=== PATIENT | female | born 1960 | race Caucasian/White ===

== ENCOUNTER 2017-04-08 11:32 | Emergency (ER) | payer OTHER ==
[~2017-04-08] VITALS: Ht 154.9 cm; Wt 80.0 kg
[~2017-04-08 11:32] MED LIST: ACET500T98 PO; AZIT250T94 PO; IBUP200C PO; OXYM15SP34 NASAL; UDROBDM PO
[2017-04-08 11:35] VITALS: Ht 154.9 cm; Wt 80.0 kg
[2017-04-08] MEDS ORDERED: ONDANSETRON 4 MG INJ IV STA (12:17)
[2017-04-08] MEDS ORDERED: SOD CHLORIDE 0.9% 500 ML IV STA (12:17)
[2017-04-08] MEDS ORDERED: AMLO-147 PO (12:21)
[2017-04-08] MEDS ORDERED: OMEP20CA16 PO (12:21)
[2017-04-08] MEDS ORDERED: LOSA50TA6 PO (12:22)
[2017-04-08] MEDS ORDERED: MECLIZINE 12.5 MG TAB PO ONE (12:30)
[2017-04-08 13:15] LABS: BASOPHILS % 0.6 % (0.0-2.0); EOSINOPHILS # 0.1 10^3/ul (0.0-0.5); EOSINOPHILS % 1.5 % (0.0-7.0); HEMATOCRIT 44.1 % (37.0-47.0); LYMPHOCYTES # 2.9 10^3/ul (0.8-2.9); LYMPHOCYTES % 43.6 % (15.0-51.0); MEAN CORPUSCULAR HEMOGLOBIN 31.6 pg (29.0-33.0); MEAN PLATELET VOLUME 11.9 fl (7.4-10.4); MONOCYTE # 0.5 10^3/ul (0.3-0.9); MONOCYTES % 6.7 % (0.0-11.0); NEUTROPHIL # 3.2 10^3/ul (1.6-7.5); NEUTROPHILS % 47.3 % (39.0-77.0); PLATELET COUNT 244 10^3/UL (140-415); RED BLOOD COUNT 4.74 10^6/ul (4.20-5.40); RED CELL DISTRIBUTION WIDTH 13.2 % (11.5-14.5); WHITE BLOOD COUNT 6.7 10^3/ul (4.8-10.8)
[2017-04-08 13:19] LABS: INR 0.96; PROTIME 12.8 Sec (12.2-14.2)
[2017-04-08 13:20] LABS: PARTIAL THROMBOPLASTIN TIME 24.1 Sec (25.0-35.0)
[2017-04-08 13:27] LABS: ANION GAP 20 (8-16); BLOOD UREA NITROGEN 10 mg/dl (7-20); CALCIUM 9.5 mg/dl (8.4-10.2); CARBON DIOXIDE 27 mmol/L (21-31); CHLORIDE 103 mmol/L (97-110); CREATININE 0.67 mg/dl (0.44-1.00); GLUCOSE 108 mg/dl (70-220); POTASSIUM 4.2 mmol/L (3.5-5.1); SODIUM 146 mmol/L (135-144)
--- NOTE | 2017-04-08 13:31 | ERD ---
ER Documentation Chief Complaint Date/Time DATE: 04/08/17 TIME: 13:29 Chief Complaint dizziness and nausea x 3 days HPI This is a 56-year-old female who presents the emergency room with multiple complaints that include lightheadedness, headache, dizziness, generalized weakness and nausea. She describes symptoms for approximately 3 days. She states the dizziness is more of a lightheaded feeling rather than a merry-go- round or vertigo type sensation. However she does note some worsening symptoms when she moves her head. She denies any motor weakness or slurred speech, no numbness or tingling or paresthesias. She denies any chest pain no shortness of breath no dysuria urgency or frequency. No abdominal pain. ROS All systems reviewed and are negative except as per history of present illness. Medications Home Meds Active Scripts Meclizine Hcl* (Meclizine Hcl*) 25 Mg Tablet, 25 MG PO Q8H Y for DIZZINESS, #30 TAB Prov:JOSIE ASHER MD 04/08/17 Reported Medications Losartan Potassium* (Losartan Potassium*) 50 Mg Tablet, 50 MG PO DAILY, TAB 04/08/17 Amlodipine Besylate* (Amlodipine Besylate*) 10 Mg Tablet, 10 MG PO DAILY, #30 TAB 04/08/17 Omeprazole* (Omeprazole*) 20 Mg Capsule.dr, 20 MG PO DAILY, #30 CAP 04/08/17 Discontinued Scripts Oxymetazoline Hcl* (Afrin [place]*) 0.05% - 15 Ml [place], 2 SPRAYS NASAL BID, #1 EA 0 Refills to each nostril Prov:RALEIGH BILL PA-C 10/11/15 Ibuprofen* (Ibuprofen*) 200 Mg Capsule, 200 MG PO Q6, #30 CAP 0 Refills Prov:RALEIGH BILL PA-C 10/11/15 Acetaminophen (Tylenol) 500 Mg Tab, 500 MG PO Q6, #30 TAB 0 Refills Prov:RALEIGH BILL PA-C 10/11/15 Azithromycin* (Zithromax*) 250 Mg Tablet, 250 MG PO .ZPACK DIRECTED, #6 TAB 0 Refills TAKE 500 MG (2 TABS) THE FIRST DAY THEN 250 MG (1 TAB) DAYS 2-5 Prov:RALEIGH BILL PA-C 10/11/15 Guaifenesin-Dextromethorphan* (Robitussin* DM) 100MG/10MG/5ML Syrup, 5 ML PO Q6H Y for COUGH, #120 ML 0 Refills Prov:RALEIGH BILL PA-C 10/11/15 Allergies Allergies: Coded Allergies: Penicillins (Verified Allergy, Unknown, 04/08/17) PMhx/Soc History of Surgery: No Anesthesia Reaction: No Hx Neurological Disorder: No Hx Respiratory Disorders: No Hx Cardiac Disorders: No Hx Psychiatric Problems: No Hx Miscellaneous Medical Probl: No Hx Alcohol Use: No Hx Substance Use: No Hx Tobacco Use: No Smoking Status: Never smoker FmHx Family History: No diabetes Physical Exam Vitals Vital Signs Date Time Temp Pulse Resp B/P Pulse Ox O2 Delivery O2 Flow Rate FiO2 04/08/17 11:35 66 18 186/86 99 Physical Exam General: Well developed, well nourished, no acute distress Head: Normocephalic, atraumatic. Eyes: Pupils equally reactive, EOM intact ENT: Moist mucous membranes Neck: Supple, no lymphadenopathy Respiratory: Lungs clear bilaterally, no distress Cardiovascular: RRR, no murmurs, rubs, or gallops Abdominal: Soft, non-tender, non-distended, no peritoneal signs : Deferred MSK: No edema, no unilateral swelling, 5/5 strength Neurologic: Alert and oriented, moving all extremities, normal speech, no focal weakness, no cerebellar signs Skin: No rash Psych: Normal mood Result Diagram: 04/08/17 1150 04/08/17 1150 Results 24 hrs Laboratory Tests Test 04/08/17 11:50 White Blood Count 6.710^3/ul Red Blood Count 4.7410^6/ul Hemoglobin 15.0g/dl Hematocrit 44.1% Mean Corpuscular Volume 93.0fl Mean Corpuscular Hemoglobin 31.6pg Mean Corpuscular Hemoglobin Concent 34.0g/dl Red Cell Distribution Width 13.2% Platelet Count 54995^3/UL Mean Platelet Volume 11.9fl Neutrophils % 47.3% Lymphocytes % 43.6% Monocytes % 6.7% Eosinophils % 1.5% Basophils % 0.6% Nucleated Red Blood Cells % 0.0/100WBC Neutrophils # 3.210^3/ul Lymphocytes # 2.910^3/ul Monocytes # 0.510^3/ul Eosinophils # 0.110^3/ul Basophils # 0.010^3/ul Nucleated Red Blood Cells # 0.010^3/ul Prothrombin Time 12.8Sec Prothrombin Time Ratio 1.0 INR International Normalized Ratio 0.96 Activated Partial Thromboplast Time 24.1Sec Sodium Level 146mmol/L Potassium Level 4.2mmol/L Chloride Level 103mmol/L Carbon Dioxide Level 27mmol/L Anion Gap 20 Blood Urea Nitrogen 10mg/dl Creatinine 0.67mg/dl Glucose Level 108mg/dl Calcium Level 9.5mg/dl Troponin I < 0.012ng/ml Current Medications Medications (Trade) Dose Ordered Sig/Ladi Route PRN Reason Start Time Stop Time Status Last Admin Dose Admin Sodium Chloride (NS) 500 ml @ 500 mls/hr Q1H STAT IV 04/08/17 12:17 04/08/17 13:16 DC 04/08/17 12:27 Ondansetron HCl (Zofran Inj) 4 mg ONCE STAT IV 04/08/17 12:17 04/08/17 12:19 DC 04/08/17 12:27 Meclizine HCl (Antivert) 25 mg ONCE ONCE PO 04/08/17 12:30 04/08/17 12:31 DC 04/08/17 12:27 Lorazepam (Ativan) 0.5 mg ONCE ONCE IV 04/08/17 14:00 04/08/17 14:01 04/08/17 13:43 Procedures/MDM EKG, MONITORS, & DIAGNOSTIC IMAGING: EKG: I reviewed and interpreted a 12-lead EKG. Rhythm: Normal sinus rhythm Ectopy: None Intervals: No abnormalities ST segments: No elevations or depressions T waves: No contiguous inversions CT brain: No acute intracranial process LAB INTERPRETATION: No leukocytosis, negative troponin MEDICAL DECISION MAKING: The patient presents with vague symptoms for approximately 3 days that include headache, nausea, lightheadedness. Her symptoms and constellation of symptoms could represent a multitude of issues but this is most likely nonemergent process. Consider possible peripheral vertigo. She does not exhibit any symptoms that are concerning for central vertigo or stroke. She has a nonfocal neurologic exam. Also consider possible viral process. Low clinical concern for significant dehydration. No evidence of acute intra-abdominal process or acute cardiac etiology. A broad workup will be initiated given the patient's age to rule out alternative process. This will include CT brain, laboratory testing, EKG, troponin. ER COURSE: Patient given IV fluids, meclizine, Zofran The patient did require some Ativan with a dramatic improvement of her symptoms. Her laboratory testing and diagnostic imaging is unrevealing. Again I do not believe this is consistent with central vertigo or central neurologic process such as stroke. This is possibly related to viral process versus peripheral vertigo. Outpatient treatment with meclizine will be appropriate. Return precautions discussed with the patient. I kept the patient and/or family informed of laboratory and diagnostic imaging results throughout the emergency room course. DISPOSITION PLAN: We discussed follow up with the patient's primary care doctor within 24 to 48 hours as needed. We also discussed return to the emergency room for worsening symptoms or worsening condition. Outpatient referral: [None required] Discharge Medications: Meclizine Departure Diagnosis: Primary Impression: Dizziness Additional Impression: Generalized weakness Condition: Stable JOSIE ASHER MD Apr 08, 2017 13:31
--- NOTE | 2017-04-08 13:37 | RADRPT ---
PROCEDURE: CT Brain without contrast. CLINICAL INDICATION: Patient experiencing a headache, dizziness, involving. TECHNIQUE: A multiplanar CT of the brain was performed on a CT scanner utilizing axial imaging fro m the skull base through the vertex without IV contrast. The CTDIvol is 44.33 mGy and the DLP is 72 0.23 mGycm. One or more of the following dose reduction techniques were utilized: Automated exposu re control, adjustment of the mA and/or kV according to patient size, use of iterative reconstructio n technique. COMPARISON: None FINDINGS: No evidence of intracranial hemorrhage or abnormal extra-axial fluid collection. The brain parenchyma is normal attenuation morphology with preservation of gonzalez white differentiatio n and age appropriate size of the ventricles and subarachnoid spaces. The basal cisterns, posterior fossa contents, brainstem, craniocervical junction, orbits, pituitary axis, paranasal sinuses, and calvarium are unremarkable. 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 IMPRESSION: 1. No intracranial hemorrhage or acute intracranial abnormality. RPTAT:AAJJ Physician Marlon Date Time Electronically viewed and signed by Physician Marlon on 04/08/2017 13:36 TRACY/
[2017-04-08] MEDS ORDERED: MECL-77 PO (13:38)
[2017-04-08 13:42] LABS: TROPONIN-I < 0.012 ng/ml (0.00-0.12)
[2017-04-08 13:50] VITALS: BP 132/68; PULSE 69; RESP 19
[2017-04-08] MEDS ORDERED: LORAZEPAM 2 MG INJ IV ONE (14:00)
== END 2017-04-08 14:33 | disposition home or self-care (01) ==
LOC: E/R 11:32
DX: R42 Dizziness and giddiness (principal); R53.1 Weakness; R40.2142 Coma scale, eyes open, spontaneous, at arrival to emergency department; R40.2252 Coma scale, best verbal response, oriented, at arrival to emergency department; R40.2362 Coma scale, best motor response, obeys commands, at arrival to emergency department; R11.0 Nausea
CPT/HCPCS: 36415; 70450; 80048; 84484; 85025; 85610; 85730; 93005; 96374; 96375; J2060; J2405; J7040; Z7502; Z7610